=== PATIENT | female | born 1960 | race Caucasian/White ===

== ENCOUNTER → 2017-08-20 | Outpatient (CLI) | payer OTHER ==
[~2017-08-20] MED LIST: CIPR-344 PO
== END ==
LOC: LAB 17:03
PROVIDERS: ATTEND Internal Medicine
DX: Z02.9 Encounter for administrative examinations, unspecified (principal)

== ENCOUNTER → 2017-08-22 | Outpatient (CLI) | payer OTHER | LOC: LAB 08:48 | PROVIDERS: ATTEND Emergency Medicine | DX: N39.0 Urinary tract infection, site not specified (principal); B96.89 Other specified bacterial agents as the cause of diseases classified elsewhere | CPT/HCPCS: 87077; 87088; 87186 ==

== ENCOUNTER → 2017-08-22 | Outpatient (CLI) | payer OTHER ==
[2017-08-22 08:41] LABS: PLATELET COUNT, AUTOMATED 310 K/uL (150-450)
[2017-08-22 09:07] LABS: LDL CHOLESTEROL 81 mg/dl
== END ==
LOC: LAB 08:05
PROVIDERS: ATTEND Internal Medicine
DX: R32 Unspecified urinary incontinence (principal); G35 Multiple sclerosis; R41.89 Other symptoms and signs involving cognitive functions and awareness
CPT/HCPCS: 36415; 81001; 82040; 82247; 82306; 82310; 82374; 82435; 82465; 82565; 82607; 82947; 83718; 84075; 84132; 84155; 84295; 84443; 84450; 84460; 84478; 84520; 85025

== ENCOUNTER → 2017-08-31 | Outpatient (CLI) | payer OTHER | LOC: LAB 10:35 | PROVIDERS: ATTEND Emergency Medicine | DX: N39.0 Urinary tract infection, site not specified (principal) | CPT/HCPCS: 87088 ==

== ENCOUNTER → 2017-11-05 | Outpatient (CLI) | payer OTHER | LOC: RESP 03:54 | PROVIDERS: ATTEND Psychiatry & Neurology Neurology | DX: G47.33 Obstructive sleep apnea (adult) (pediatric) (principal) ==

== ENCOUNTER 2017-12-01 22:28 | Emergency (ER) | payer OTHER ==
[2017-12-01] MEDS ORDERED: INTE22PE SQ (22:43)
[2017-12-01] MEDS ORDERED: LEVO50TA86 PO (22:43)
[2017-12-01] MEDS ORDERED: DALFAM10PT GT (22:44)
--- NOTE | 2017-12-01 22:44 | ER Report ---
History and Physical Time Seen By MD: 22:44 Hx. of Stated Complaint: patient has MS; states that tonight she fell onto her left wrist; wrist is swollen and hard to use HPI/ROS CHIEF COMPLAINT: fall with wrist injury HISTORY OF PRESENT ILLNESS: This is a 57 year old female. She fell tonight, pushed over by the dog. Now with pain and swelling radial side of her left wrist. Pain shoots up the arm when she tries to move it. Has normal sensation. Allergies: Coded Allergies: Penicillins (Verified Allergy, Unknown, itchiness, 12/01/17) Home Meds Active Scripts Hydrocodone Bit/Acetaminophen (HYDROCODON-ACETAMINOPHEN 5-325) 1 Each Tablet, 1 EACH PO Q4H Y for PAIN, #12 TAB 0 Refills Prov:LINDA CHRISTOPHER MD 12/02/17 Reported Medications Dalfampridine (AMPYRA) 10 Mg Tabcr, 10 MG GT Q12H 12/01/17 Interferon Beta-1A/Albumin (REBIF REBIDOSE 22 MCG/0.5 ML) 22 Mcg/0.5 Ml Pen.injctr, 22 MCG SQ 3XW 12/01/17 Levothyroxine Sodium (LEVOTHYROXINE SODIUM) 50 Mcg Tablet, 50 MCG PO QDAY, TAB 12/01/17 Reviewed Nurses Notes: Yes Smoking Status: Never Smoker Hx Substance Use Disorder: No Hx Alcohol Use: No Constitutional Vital Sign - Last 24 Hours 12/01/17 12/02/17 12/02/17 12/02/17 22:34 00:18 00:24 00:28 Temp 98.0 Pulse 85 Resp 18 B/P (MAP) 113/86 113/80 (91) 103/82 (89) 95/74 (81) Pulse Ox 97 O2 Delivery Room Air 12/02/17 12/02/17 12/02/17 12/02/17 00:30 00:32 00:36 00:40 Pulse 72 Resp 10 B/P (MAP) 93/71 (78) 101/74 (83) 95/76 (82) Pulse Ox 96 12/02/17 12/02/17 12/02/17 12/02/17 00:44 00:48 00:52 00:56 B/P (MAP) 101/79 (86) 94/77 (83) 98/87 (91) 100/79 (86) 12/02/17 12/02/17 12/02/17 12/02/17 01:00 01:04 01:08 01:12 Resp 13 B/P (MAP) 97/75 (82) 99/77 (84) 102/80 (87) 99/75 (83) Pulse Ox 99 Physical Exam General appearance: alert, no distress. Left wrist: There is no asymmetry. There is mild swelling over the radial aspect of the wrist, extending into the hand and thenar area. There is no obvious deformity. No tenderness over the anatomic snuff box. No tenderness over the ulnar styloid. No tenderness over the metacarpals. Neurologic exam: The patient has normal sensation distal to the injury. Active range of motion is intact, but with pain. Vascular exam: Normal pulses and capillary refill. Skin: no breakdown. DIFFERENTIAL DIAGNOSIS: After history and physical exam, differential diagnosis was considered for wrist injury including sprain, fracture, dislocation and soft tissue injury. Medical Decision Making EKG/Imaging Imaging INDICATION: fall, wrist and hand pain, radial side EXAM DATE: 12/01/2017 10:46 PM COMPARISON: None. FINDINGS: Fall, left wrist and hand pain.. Mineralization is normal. There is an acute fracture through the distal aspect of the radius with mild displacement and probable intra-articular involvement. There is also mildly displaced fracture the ulnar styloid. Soft tissues about the wrist and distal forearm are swollen. No additional acute fracture or dislocation. IMPRESSION: Acute distal fractures of the left radius and ulna as described. Report Dictated By: Celio Payan MD at 12/01/2017 11:16 PM INDICATION: Postreduction. EXAM DATE: 12/01/2017 11:44 PM COMPARISON: 12/01/2017. FINDINGS: 3 views left wrist. Mineralization is normal. Redemonstration of previously seen distal radial and ulnar fractures. Alignment is improved with persistent mild radial and anterior displacement at the radial fracture. Displacement of the ulnar fracture is also improved. IMPRESSION: Improved post reduction alignment of the previously seen left distal radial and ulnar fractures with persistent mild displacement. Report Dictated By: Celio Payan MD at 12/02/2017 12:40 AM ED Course/Re-evaluation Clinical Indication for ER IV: Hydration, IV Access ED Course Initial evaluation with x-ray showed fracture. Arrange for the sedation and reduction as noted below. This went well and good postreduction position although still slight dislocation of the fracture. This was splinted as noted. She had good pain relief with this. She will take Lortab as needed for pain and follow up with [facility] Re-evaluation Procedure: Procedural sedation. A pre-sedation evaluation was completed on the patient. Patient is an appropriate candidate for procedural sedation. The risks of the sedation were discussed with the patient. A time out was completed. The patient was reevaluated immediately prior to initiation of sedation. The patient was sedated with propofol with an initial dose of fentanyl. The patient was monitored with continuous pulse oximetry and computer systems design analyst. There were no complications and no significant hypoxemia. I remained at the bedside for the sedation. The total time I spent in the procedural sedation was 20 minutes. Post sedation evaluation: Patient was alert and cooperative, hemodynamically stable with appropriate respiratory status, temperature and pain control without ongoing nausea and vomiting. Procedure: Distal radius fracture reduction: The rest was reduced in the usual fashion without complications. Post reduction the patient's neurovascular exam is normal. Post reduction x-ray demonstrates reduction of the joint to the anatomic position. The procedure was performed by myself. Procedure: Sugar tong forearm half cast placement. A half-cast/splint as noted above was applied. After application of the half- cast, I returned and re-examined the patient. The half-cast was adequately immobilizing the joint and distally the patient's circulation and sensation was intact. This was applied by myself. Decision to Disposition Date: Dec 02, 2017 Decision to Disposition Time: 01:09 Depart Departure Latest Vital Signs Vital Signs Date Time Temp Pulse Resp B/P (MAP) Pulse Ox O2 Delivery O2 Flow Rate FiO2 12/02/17 01:12 99/75 (83) 12/02/17 01:00 13 99 12/02/17 00:30 72 12/01/17 22:34 98.0 Room Air Impression: Primary Impression: Distal radius fracture, left Additional Impression: Ulna styloid fracture, closed Condition: Improved Disposition: HOME OR SELF-CARE Referrals: MATI NGUYEN MD (PCP) New Scripts Hydrocodone Bit/Acetaminophen (HYDROCODON-ACETAMINOPHEN 5-325) 1 Each Tablet 1 EACH PO Q4H Y for PAIN, #12 TAB 0 Refills Prov: LINDA CHRISTOPHER MD 12/02/17 Patient Instructions: Wrist Fracture in Adults (ED) Additional Instructions: Ibuprofen 200mg over the counter tablets, take 4 tablets three times a day with food. Lortab 5/325, one every 4 hours as needed for pain. Apply ice 20 minutes every 1-2 hours while awake. Keep the splint on until you see the orthopedic surgeon. Call [facility] on Sunday morning to schedule follow-up with them for early this week. Rest the injured area, keep it elevated while at rest. Problem Qualifiers Primary Impression: Distal radius fracture, left Encounter type: initial encounter Fracture type: closed Fracture morphology : unspecified fracture morphology Qualified Codes: S52.502A - Unspecified fracture of the lower end of left radius, initial encounter for closed fracture Additional Impression: Ulna styloid fracture, closed Encounter type: initial encounter Fracture alignment: displaced Laterality : left Qualified Codes: S52.612A - Displaced fracture of left ulna styloid process, initial encounter for closed fracture LINDA CHRISTOPHER MD Dec 01, 2017 22:44
--- NOTE | 2017-12-01 23:22 | RADIOLOGY IMAGING REPORT ---
FACILITY: [facility] PATIENT NAME: Amee Conroy : 1960 MR: [id number] V: [id number] EXAM DATE: ORDERING PHYSICIAN: LINDA CHRISTOPHER TECHNOLOGIST: Location: [facility] Patient: Amee Conroy : 1960 Visit/Account:[id number] Date of Sevice: 12/01/2017 INDICATION: fall, wrist and hand pain, radial side EXAM DATE: 12/01/2017 10:46 PM COMPARISON: None. FINDINGS: Fall, left wrist and hand pain.. Mineralization is normal. There is an acute fracture through the di stal aspect of the radius with mild displacement and probable intra-articular involvement. There is also mildly displaced fracture the ulnar styloid. Soft tissues about the wrist and distal forearm ar e swollen. No additional acute fracture or dislocation. IMPRESSION: Acute distal fractures of the left radius and ulna as described. Report Dictated By: Celio Payan MD at 12/01/2017 11:16 PM Report E-Signed By: Celio Payan MD at 12/01/2017 11:18 PM WSN:[id number]
--- NOTE | 2017-12-01 23:23 | RADIOLOGY IMAGING REPORT ---
FACILITY: [facility] PATIENT NAME: Amee Conroy : 1960 MR: [id number] V: [id number] EXAM DATE: ORDERING PHYSICIAN: LINDA CHRISTOPHER TECHNOLOGIST: Location: [facility] Patient: Amee Conroy : 1960 Visit/Account:[id number] Date of Sevice: 12/01/2017 INDICATION: fall, wrist and hand pain, radial side EXAM DATE: 12/01/2017 10:46 PM COMPARISON: None. FINDINGS: Fall, left wrist and hand pain.. Mineralization is normal. There is an acute fracture through the di stal aspect of the radius with mild displacement and probable intra-articular involvement. There is also mildly displaced fracture the ulnar styloid. Soft tissues about the wrist and distal forearm ar e swollen. No additional acute fracture or dislocation. IMPRESSION: Acute distal fractures of the left radius and ulna as described. Report Dictated By: Celio Payan MD at 12/01/2017 11:16 PM Report E-Signed By: Celio Payan MD at 12/01/2017 11:18 PM WSN:[id number]
[2017-12-01] MEDS ORDERED: PROPOFOL EMUL 10MG/ML 20 ML VL IVP ONE (23:45)
[2017-12-01] MEDS ORDERED: NS(*) 0.9% 1000 ML BAG 1,000 ML IV ONE (23:45)
[2017-12-01] MEDS ORDERED: fentaNYL CITR 100 MCG/2 ML AMP IVP ONE (23:45)
--- NOTE | 2017-12-02 00:47 | RADIOLOGY IMAGING REPORT ---
FACILITY: [facility] [place] PATIENT NAME: Amee Conroy : 1960 MR: [id number] V: [id number] EXAM DATE: ORDERING PHYSICIAN: LINDA CHRISTOPHER TECHNOLOGIST: Location: [facility] [place] Patient: Amee Conroy : 1960 Visit/Account:[id number] Date of Sevice: 12/01/2017 INDICATION: Postreduction. EXAM DATE: 12/01/2017 11:44 PM COMPARISON: 12/01/2017. FINDINGS: 3 views left wrist. Mineralization is normal. Redemonstration of previously seen distal radial and u lnar fractures. Alignment is improved with persistent mild radial and anterior displacement at the r adial fracture. Displacement of the ulnar fracture is also improved. IMPRESSION: Improved post reduction alignment of the previously seen left distal radial and ulnar fr actures with persistent mild displacement. Report Dictated By: Celio Payan MD at 12/02/2017 12:40 AM Report E-Signed By: Celio Payan MD at 12/02/2017 12:42 AM WSN:[id number]
[2017-12-02] MEDS ORDERED: LOR5/325 PO (01:11)
[2017-12-02 01:12] VITALS: BP 99/75
[2017-12-02] MEDS ORDERED: ACET/HYDROC 5/325MG TH ER ONLY 2 TAB/BOTTLE PO ONE (01:15)
== END 2017-12-02 01:31 | disposition home or self-care (01) ==
LOC: ER 22:34
DX: S52.502A Unspecified fracture of the lower end of left radius, initial encounter for closed fracture (principal); S52.612A Displaced fracture of left ulna styloid process, initial encounter for closed fracture
CPT/HCPCS: 25605; 73110; 73130; 99152; 99284; A4565; J2704; J3010; J7030; 96361; 96374; 96375

== ENCOUNTER → 2017-12-04 | Outpatient (CLI) | payer OTHER ==
[~2017-12-04] MED LIST changes: +DALFAM10PT GT; +INTE22PE SQ; +LEVO50TA86 PO; +LOR5/325 PO
--- NOTE | 2017-12-04 15:52 | EKG ---
FACILITY: [facility] PATIENT NAME: JER GUTIÉRREZ : [id number] MR: [id number] V: [id number] EXAM DATE: ORDERING PHYSICIAN: GEMINI RODRIGUEZ TECHNOLOGIST: JENNIFER Test Reason : HEART PALPITATIONS Blood Pressure : / mmHG Vent. Rate : 097 BPM Atrial Rate : 097 BPM P-R Int : 134 ms QRS Dur : 082 ms QT Int : 360 ms P-R-T Axes : 077 078 074 degrees QTc Int : 457 ms Normal sinus rhythm Nonspecific ST abnormality Abnormal ECG No previous ECGs available Confirmed by GEMINI RODRIGUEZ ([id number]) on 12/05/2017 2:29:07 PM Referred By: Confirmed By:GEMINI RODRIGUEZ
== END ==
LOC: CARD 14:52
PROVIDERS: ATTEND Emergency Medicine
DX: Z02.9 Encounter for administrative examinations, unspecified (principal)

== ENCOUNTER 2017-12-11 00:35 | Day surgery (SDC) | payer OTHER ==
[2017-12-11] VITALS (8 sets, daily range): BP systolic 105–115; BP diastolic 74–88
[~2017-12-11] VITALS: Ht 172.7 cm; Wt 67.1 kg
[~2017-12-11 00:35] MED LIST changes: +CLINDAMYCIN(*) 600 MG/NS 50 ML 50 ML IVPB ONE
[2017-12-11] MEDS ORDERED: ROPIVACAINE 0.2% 20 ML VIAL ONE ×2 (06:35→09:58)
[2017-12-11] MEDS ORDERED: BACITRACIN OINT 15 GM TUBE TP ONE ×2 (06:35→09:58)
[2017-12-11] MEDS ORDERED: FAMOTIDINE 20 MG TAB PO ONE (09:00)
[2017-12-11] MEDS ORDERED: LIDOCAINE/SOD BICARB 8.4% SYR ID ONE (09:00)
[2017-12-11] MEDS ORDERED: CLINDAMYCIN(*) 600 MG/NS 50 ML 50 ML IVPB ONE (09:00)
[2017-12-11] MEDS ORDERED: NORMOSOL R SOLN(*) 1000 ML BAG 1,000 ML IV PRN (09:00)
[2017-12-11] MEDS ORDERED: MIDAZOLAM 2 MG/2 ML VIAL IVP PRN (09:00)
[2017-12-11] MEDS ORDERED: CELECOXIB 200 MG CAP PO ONE (09:00)
[2017-12-11] MEDS ORDERED: fentaNYL CITR 100 MCG/2 ML AMP ONE (10:20)
[2017-12-11] MEDS ORDERED: ONDANSETRON 4 MG/2 ML VIAL ONE (10:20)
[2017-12-11] MEDS ORDERED: DEXAMETHASONE SOD 4 MG/ML VIAL ONE (10:20)
[2017-12-11] MEDS ORDERED: PROPOFOL EMUL(*) 10MG/ML 20 ML 20 ML ONE (10:20)
[2017-12-11] MEDS ORDERED: LIDOCAINE MPF 1% 5 ML VIAL ONE (10:20)
[2017-12-11] MEDS ORDERED: KETAMINE HCL 200 MG/20 ML MDV ONE (10:23)
[2017-12-11] MEDS ORDERED: HYDROmorphone HCL 2 MG/ML SDV ONE (10:24)
[2017-12-11] MEDS ORDERED: NS 0.9% 20 ML SDV 20 ML ONE (10:24)
[2017-12-11] MEDS ORDERED: OXYC5TAB38 PO (13:08)
[2017-12-11] MEDS ORDERED: CLIN300C99 PO (13:09)
--- NOTE | 2017-12-11 15:01 | OPERATIVE REPORT 1 ---
EVENT DATE: December 11, 2017 SURGEON: Braden Meyer MD ANESTHESIOLOGIST: Robbin Jay MD ANESTHESIA: General. PLATE FINISHER: DENNYS Burleson PREOPERATIVE DIAGNOSES 1. Left comminuted intraarticular distal radius fracture with multiple fragments. 2. Distal ulnar basilar fracture with possible distal radioulnar joint disruption. POSTOPERATIVE DIAGNOSIS Comminuted intraarticular distal radius fracture with disruption of distal radioulnar joint by virtue of ulnar fracture (Galeazzi equivalent). PROCEDURES PERFORMED 1. Open reduction and internal fixation of multi-part distal radius fracture with both plate and interfragmentary fixation. 2. Distal radioulnar joint disruption by twin Kika wire fixation. ESTIMATED BLOOD LOSS Minimal. INTRAVENOUS FLUIDS Crystalloid 1500, no colloid. TOURNIQUET TIME 75 at 250. SPECIMENS No specimens. COMPLICATIONS No complications. IMPLANTS USED [employer] Geminus plate, three hole, left, with two 2.7 mm interfragmentary screws, and two 0.062 inch K-wires. SUMMARY OF PROCEDURE The patient was brought into the operating room and placed on the OR table in the supine position with a hand table at her left side. After obtaining adequate general anesthesia, the left upper extremity was prepped and draped in the usual sterile fashion. The limb was exsanguinated, and the tourniquet was inflated to 250 mmHg. We started our approach with a volar approach, and I extended it a bit more distally than average due to the need to go into the joint with this case. We dissected down through skin and subcutaneous tissue. One crossing vein was ligated with a 3-0 Vicryl tie. The radial artery was left on the radial side. The flexor carpi radialis was opened at its sheath and then was placed on a 1/4-inch [place] drain and retracted ulnarly. We then opened the floor of the sheath at the flexor carpi radialis and dissected down bluntly with my fingertip to expose the intact pronator quadratus. The flexor pollicis longus muscle belly was moved out of the way. We then incised along the radial border of the pronator quadratus, extending distally until feeling the margin of the joint and then went ulnarly a little bit with an L-shaped incision. I used the electrocautery unit then to open up the attachments of the volar wrist ligaments which would later be repaired. This was done to fully expose the articular surface so we could visualize the intraarticular fragmentation. Having done this, we then began to work on a reduction. I started by first reducing the articular fragments and placing two small K-wires from volar to dorsal. Once I had confirmed that the articular fragments were intact, then I positioned the Geminus plate and placed screws. It appeared we had good fixation, and there was no hardware that was in the joint both by direct visual examination as well as by x-ray examination. After completing the threaded and smooth distal pins and securing proximal screws, I then checked the C-arm and then exchanged one screw for another screw that was 2 mm longer at the gliding hole. Finally, we took the two initially placed K-wires that were holding the joint fragment, but unfortunately upon doing so, we noted that the joint fragment was once again mobile, suggesting that the dorsal fragment which included about a third of the articular surface was not captured by the fairly distal screws in the Geminus plate. Consequently, I placed two interfragmentary screws while holding the fragment with a 0.045-inch K-wire. First, the K-wire was placed, and I left the dental pick in position holding the fragment while the lag screw was placed, and then I did a second screw by removing the K-wire and exchanging it with an interfragmentary lag screw. We once again checked the C-arm, and it appeared things were nice and stable, and I was able to examine the fragment and palpate it with the dental pick, and it would not move. The scapholunate interval was deemed intact with axial load on fluoroscopy; however, the distal radioulnar joint was rather wide. I then placed her in a neutral position and checked her stability on the distal radioulnar joint, and it was quite lax, confirming the suspicion that we had initially that this might have been a Galeazzi equivalent. Consequently, the DRUJ was reduced by direct lateral compression, and two 0.062 inch K-wires were introduced percutaneously from the ulna to the radius. One of them was passed through the far radial cortex as I had intended to allow for removal in the event that the pins break. The other one, unfortunately, contacted the middle screw of the plate. It almost was able to get by, but it was enough against it that we ended up just leaving it that way. In the event that that pin were to break, we would explore from an ulnar direction and remove the pain that way. The pins were cut and Jurgan balls applied. The wound was irrigated. We closed the joint capsule and repaired the volar wrist ligaments with 4-0 nonabsorbable suture and then also did a couple sutures in the pronator quadratus just to cover the plate. The wound was irrigated again. The tourniquet was deflated. Bipolar cautery was used for hemostasis, but there was only minimal bleeding. We then closed skin with nylon. She was given a dry , sterile dressing and a long-arm splint. She was awakened and transferred to the recovery area in stable condition. PORTIA
[2017-12-11] MEDS ORDERED: oxyCODONE HCL 5 MG CAP ONE (15:37)
== END 2017-12-11 13:43 | disposition home or self-care (01) ==
LOC: OR 00:35
PROVIDERS: ATTEND Orthopaedic Surgery Hand Surgery
DX: S52.572A Other intraarticular fracture of lower end of left radius, initial encounter for closed fracture (principal); S52.692A Other fracture of lower end of left ulna, initial encounter for closed fracture
CPT/HCPCS: 25609; 76000; A4565; C1713; J1100; J1170; J2001; J2250; J2405; J2704; J2795; J3010; J3490; J7050

== ENCOUNTER → 2018-06-14 | Outpatient (CLI) | payer OTHER ==
[~2018-06-14] MED LIST changes: +CLIN300C99 PO; -CLINDAMYCIN(*) 600 MG/NS 50 ML 50 ML IVPB ONE; +DIPH0.5D12 IM; +FLU60SYR36 IM; +LEVO25TA61 PO; +OXYC5TAB38 PO
== END ==
LOC: LAB 12:00
PROVIDERS: ATTEND Emergency Medicine
DX: E03.9 Hypothyroidism, unspecified (principal)
CPT/HCPCS: 36415; 84443

== ENCOUNTER → 2018-07-16 | Outpatient (CLI) | payer OTHER ==
--- NOTE | 2018-07-16 13:02 | RADIOLOGY IMAGING REPORT ---
FACILITY: [facility] [place] PATIENT NAME: Amee Conroy : 1960 MR: [id number] V: [id number] EXAM DATE: ORDERING PHYSICIAN: GEMINI RODRIGUEZ TECHNOLOGIST: Location: [facility] [place] Patient: Amee Conroy : 1960 Visit/Account:[id number] Date of Sevice: 07/16/2018 DEXA Scan Clinical history: screening. Comparison: None. LUMBAR SPINE: The bone mineral density (BMD) measured from L1-L4 correlates with a Z-score of -3.9 and a T-score of -4.7 which is osteoporotic as defined by the World Health Organization. The corresponding risk of f racture in the lumbar spine is significantly increased compared with a young adult reference populati on. HIP: Bone mineral density (BMD) measured in the Left total hip region correlates with a Z-score of -2.9 and a T-score of -3.5. The T-score of the femoral neck is -2.6. The lower of the two T sco res is osteoporotic which is defined as defined by the World Health Organization. The correspondin g risk of fracture in the hip is significantly increased approximately 10 fold compared with a young adult reference population. Bone mineral density (BMD) measured in the Left Femoral Neck region measures 0.680 g/cm?. Impression: 1. Lumbar spine: Osteoporotic. 2. Left Total Hip: Osteoporotic. The next DEXA scan of this patient should include the following sites: L1-L4 and Left hip. FRAX? WHO Fracture Risk Assessment Tool link: <http://www.shef.ac.uk/FRAX/tool.jsp?locationValue=9> PLEASE NOTE: 1) The World Health Organization defines low BMD as follows: T-score Normal > -1 Osteopenia < -1 and > -2.5 Osteoporosis < -2.5 without fractures Established osteoporosis < -2.5 with fractures 2) In general, you may wish to consider: Diagnosis Treatment Follow-up DEXA Normal BMD Prevention 2-3 years Osteopenia Prevention/therapy 1-2 years Osteoporosis Therapy Yearly 3) Fracture risk estimated from the T-score is more accurate for vertebral fractures (often spontane ous) than for hip fractures. Report Dictated By: Kahlil White MD at 07/16/2018 12:57 PM Report E-Signed By: Kahlil White MD at 07/16/2018 12:58 PM WSN:[email or web address]
--- NOTE | 2018-07-23 09:01 | RADIOLOGY IMAGING REPORT ---
FACILITY: [facility] [place] PATIENT NAME: JER GUTIÉRREZ : [id number] MR: [id number] V: [id number] EXAM DATE: ORDERING PHYSICIAN: GEMINI RODRIGUEZ TECHNOLOGIST: Rohini Mccartney PROCEDURE:BILATERAL DIGITAL SCREENING MAMMOGRAM WITH CAD ASSISTED INTERPRETATION COMPARISON:Prior outside mammograms 03/09/16. INDICATIONS:screening FINDINGS: The breasts are heterogeneously dense which can obscure small masses. The parenchymal pattern has remained stable allowing for difference in mammographic technique & patient positioning. DIAGNOSTIC CATEGORY 1--NEGATIVE. RECOMMENDATIONS: ROUTINE MAMMOGRAM AND CLINICAL EVALUATION. IMPRESSION: BIRADS 1: Negative. No significant abnormality is seen. Dictated by: Luz Cheng M.D. on 07/22/2018 at 18:22 Transcribed by: GREGOR on 07/23/2018 at 7:52 Approved by: Luz Cheng M.D. on 07/23/2018 at 9:00 [facility]
== END ==
LOC: MAMO 01:25
PROVIDERS: ATTEND Emergency Medicine
DX: Z12.31 Encounter for screening mammogram for malignant neoplasm of breast (principal); M81.0 Age-related osteoporosis without current pathological fracture
CPT/HCPCS: 77063; 77067; 77080

== ENCOUNTER → 2018-07-23 | Outpatient (CLI) | payer OTHER | LOC: LAB 14:34 | PROVIDERS: ATTEND Emergency Medicine | DX: E03.9 Hypothyroidism, unspecified (principal); M81.0 Age-related osteoporosis without current pathological fracture | CPT/HCPCS: 36415; 82306; 82310; 82374; 82435; 82565; 82947; 83970; 84132; 84295; 84443; 84520 ==

== ENCOUNTER → 2018-10-02 | Outpatient (CLI) | payer OTHER ==
[~2018-10-02] MED LIST changes: -DIPH0.5D12 IM; +DIPH0.5S2 IM
== END ==
LOC: LAB 14:29
PROVIDERS: ATTEND Psychiatry & Neurology Neurology
DX: E03.9 Hypothyroidism, unspecified (principal)
CPT/HCPCS: 36415; 84436; 84439; 84443; 84480; 84481